=== PATIENT | male | born 1985 | race African-American/Black ===

== ENCOUNTER → 2020-02-03 | Outpatient (CLI) | payer OTHER ==
--- NOTE | 2020-02-03 11:10 | RAD ---
EXAM: Right ankle, 3 views. HISTORY: Unable to bear weight. COMPARISON: None. FINDINGS: 3 views of the right ankle are obtained. There is no fracture, dislocation or subluxation. There is diffuse ankle soft tissue swelling. There is no osteochondral lesion. IMPRESSION: Diffuse soft tissue swelling. Electronically signed by: Honey Stevens MD (02/03/2020 11:07 AM) [id number]
== END | disposition home or self-care (01) ==
LOC: RAD 10:20
PROVIDERS: ATTEND Family Medicine
DX: M79.89 Other specified soft tissue disorders (principal); M25.571 Pain in right ankle and joints of right foot
CPT/HCPCS: 73610